=== PATIENT | male | born 1965 | race Caucasian/White ===

== ENCOUNTER 2017-11-26 03:46 | Emergency (ER) | payer BC, OTHER ==
[~2017-11-26] VITALS: Ht 165.1 cm; Wt 79.1 kg
[~2017-11-26 03:46] MED LIST: AGM875 PO
[2017-11-26 03:51] VITALS: TEMP 36.7; Ht 165.1 cm; Wt 79.1 kg
[2017-11-26] MEDS ORDERED: AMOX875T PO (04:15)
[2017-11-26] MEDS ORDERED: AMOXICIL/CLAVU 875MG HOME PACK PO ONE (04:15)
[2017-11-26 04:34] VITALS: BP 107/56; PULSE 63; O2SAT 99
--- NOTE | 2017-11-27 07:19 | EMERGENCY ROOM VISIT NOTE ---
History First contact with patient: 03:58 Chief Complaint: FINGER PAIN Stated Complaint: THUMB OF RIGHT HAND SWOLLEN,PAINFUL,INFECTED History of Present Illness The patient is a 52 year old male who presents to the Emergency Room with complaints of pain and swelling to his right thumb worsening over the past 4-5 days. The patient does not recall distinct injury or trauma. He admits to biting his fingernails. He is not diabetic and believes he is in good health. 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 He is having difficulty using his thumb because of the pain. He rates his discomfort at 8/10. He has not had fever or chills. He believes he is up-to-date on his tetanus. Review of Systems More than 10 systems were reviewed and otherwise negative with the exception of history of present illness. Past Medical/Surgical History No chronic medical disease Family History No pertinent family history Social History Smoking Status: Never Smoker Occupation Status: employed Current/Historical Medications Scheduled Amoxicillin & Pot Clavulanate (Augmentin 875-125 mg), 1 TAB PO BID Physical Exam Vital Signs Date Time Temp Pulse Resp B/P (MAP) Pulse Ox O2 Delivery O2 Flow Rate FiO2 11/26/17 04:34 63 16 107/56 99 11/26/17 03:51 36.7 61 18 159/98 98 Room Air Physical Exam VITALS: Vitals are noted on the nurse's note and reviewed by myself. Vital signs stable. GENERAL: Well-developed, well-nourished, white male, who is in no acute distress and resting comfortably. Patient is cooperative with the examination. HEART: Regular rate and rhythm without murmurs gallops or rubs. LUNGS: Clear to auscultation bilaterally without wheezes, rales or rhonchi. No retractions or accessory muscle use. MUSCULOSKELETAL: There is noted paronychia to the lateral aspect of the right thumb extending to the cuticle space. Neurovascular status is intact. Medical Decision & Procedures ED Course Physical exam and history were performed. Nursing notes, EMR, and Medication List were personally reviewed. Patient appears to have a paronychia of the right thumb. After discussion of options with the patient he did elect for drainage of his infection. Alcohol wipes were used to cleanse the skin. Ethyl chloride was utilized for anesthesia , and an 18-gauge needle was easily able to de-roof the superficial tissue around the fingernail. This did release a small amount of purulent drainage, which was sent for culture. The patient tolerated this well without bleeding. Overall the patient appears well for discharge home. As he does admit to biting his nails I will start him on a course of Augmentin pending cultures. The patient is to follow with his primary care physician with any ongoing or persisting symptoms. He voiced understanding of this plan and rated his discomfort a 2/10 at the time of departure. The chart was completed utilizing [employer] Voice Recognition Software. Grammatical errors, random word insertions, pronoun errors, and incomplete sentences are an occasional consequence of this system due to software limitations, ambient noise, and hardware issues. Any formal questions or concerns about the content, text, or information contained within the body of this dictation should be directly addressed to the provider for clarification. . Medical Decision Differential diagnosis: Etiologies such as cellulitis, abscess, MRSA infection, DVT, necrotizing fasciitis, dermatitis, drug eruption, as well as others were entertained.. Impression Primary Impression: Paronychia of thumb, right Departure Information Dispostion Home / Self-Care Condition GOOD Prescriptions Amoxicillin & Pot Clavulanate (Augmentin 875-125 mg) 1 Tab Tab 1 TAB PO BID for 7 Days, #14 TAB Prov: Domingo Mata PA-C 11/26/17 Forms HOME CARE DOCUMENTATION FORM, IMPORTANT VISIT INFORMATION Patient Instructions My [facility] Additional Instructions You were seen and evaluated today on an emergency basis only. This is not a substitute for, or an effort to provide, complete comprehensive medical care. It is not possible to recognize and treat all injuries or illnesses in a single emergency department visit. For this reason it is recommended that you followup with your primary care physician with any ongoing or persisting symptoms. Amoxicillin Clavulanate (Augmentin) 875mg: Take one pill twice daily for 7 days for your infection. All antibiotics can cause diarrhea. If this occurs and you feel worse or it does not resolve in 1-2 days follow up with your doctor or return to the Emergency Department as this could be signs of serious underlying problems. Any medication can cause an allergic reaction, stop the pills immediately and return to the ER for rash, hives, breathing difficulties, or swelling. You are welcome to return to the emergency department anytime with new, worsening, or concerning symptoms.
== END 2017-11-26 04:36 | disposition home or self-care (01) ==
LOC: C.EDB 03:47
DX: L03.011 Cellulitis of right finger (principal)